=== PATIENT | female | born 1940 | race Caucasian/White ===

== ENCOUNTER 2022-11-09 14:11 | Observation (INO) | payer MEDICARE, SELFPAY ==
--- NOTE | ~2022-11-09 | CT_ITS ---
EXAMINATION: CT abdomen pelvis w con DATE: 11/09/2022 18:53 INDICATION: Low back pain. TECHNIQUE: Computed tomography (CT) of the abdomen and pelvis was performed with 100 L Omnipaque 350 intravenous contrast. Automated exposure control and iterative reconstruction technique were employed . The dose-length product was 659.77 mGy-cm. COMPARISON: None. FINDINGS: The visualized portions of the lung bases demonstrate mild atelectasis. Calcified pulmonary nodules are consistent with old granulomatous disease. There is mucous plugging in right middle lobe . There is a 7 mm nodule in the lingula. No pleural effusion. The heart size is normal. No pericardia l effusion. There is a moderate-sized sliding hiatal hernia. The liver is normal. There are changes o f cholecystectomy. The spleen, pancreas, adrenal glands are normal. There is a 12 mm cyst in right ki dney. Left kidney is normal. There is a 1.8 x 1.2 cm mass in left posterior aspect of the bladder. Th ere is diverticulosis of the colon without evidence of diverticulitis. There are no dilated loops of bowel. The appendix is normal. There is a 10 x 17 mm mesenteric lymph node. There is no free intraper itoneal fluid. There is moderate lumbar spondylosis. IMPRESSION: 1. 1.8 cm mass in the bladder suspicious for urothelial carcinoma. 2. 7 mm pulmonary nodule, probably benign. Noncontrast low-dose chest CT is recommended in 6 months. 3. Moderate-sized sliding hiatal hernia. 4. Mildly enlarged mesenteric lymph node, probably reactive. Reviewed, dictated and finalized at location E. IMPRESSION: 1. 1.8 cm mass in the bladder suspicious for urothelial carcinoma. 2. 7 mm pulmonary nodule, probably benign. Noncontrast low-dose chest CT is rec ommended in 6 months. 3. Moderate-sized sliding hiatal hernia. 4. Mildly enlarged mesenteric lymph node, probably reactive.
[2022-11-09 14:39] VITALS: BP 128/68; PULSE 96; RESP 16; TEMP 38.1; O2SAT 97
[2022-11-09 15:04] LABS: Hematocrit 46.1 % (37.0-47.0); Hemoglobin 15.8 g/dL (12.0-15.0); Mean Corpuscular HGB Conc 34.3 g/dl (32-36); Mean Corpuscular Volume 93.3 fl (80-100); Mean Platelet Volume 9.5 fl (7.4-10.4); Platelet Count Result 224 k/mm3 (150-375); Red Blood Count 4.94 M/mm3 (4.2-5.4); Red Cell Distribution Width 12.5 % (11.5-14.5)
[2022-11-09 15:10] LABS: Alanine Aminotransferase 42 U/L (6-35); Albumin Level 3.9 g/dL (3.5-5.1); Alkaline Phosphatase 97 U/L (38-126); Anion Gap 5 mmol/L (8-16); Aspartate Amino Transferase 58 U/L (14-36); Bilirubin,Total 0.8 mg/dL (0.2-1.3); Blood Urea Nitrogen 8 mg/dL (7-17); Calcium 8.4 mg/dL (8.4-10.2); Carbon Dioxide 27 mmol/L (22-30); Chloride 94 mmol/L (98-107); Estimated CRCL calculation 48 ml/min; Estimated Glomerular Filt Rate > 60; Glucose 171 mg/dL (65-110); Lipase 31 U/L (23-300); Potassium 2.9 mmol/L (3.4-5.0); Sodium 126 mmol/L (137-145)
[2022-11-09 15:19] LABS: Band Neutrophils Percent 13 % (0-6); Eosinophils Percent Manual 1 % (0-4); Monocytes Percent Manual 5 % (3-9); Neutrophils Percent Manual 76 % (46-73); Platelet Estimate Adequate (Adequate); Total Cells Counted 100
[2022-11-09 15:20] LABS: Schistocytes None Seen (NORMAL)
--- NOTE | 2022-11-09 16:49 | ED.FEMALEGU ---
HPI - Female Genitourinary General Chief complaint: Urogenital-Female Stated complaint: back pain, urinary retention Time Seen by Provider: 11/09/22 16:49 Source: patient and family Mode of arrival: ambulatory Limitations: no limitations History of Present Illness HPI Narrative: 81 years old white female came from home by private car with her complaining of steady lower back pain overnight, could not sleep. Woke up this morning with complete improvement. Patient was treated recently for urinary tract infection and currently on antibiotic. Patient reports intermittent lower back pain during daytime. Associated with chills, denies any nausea or vomiting or abdominal pain or chest pain. Related Data Allergies Allergy/AdvReac Type Severity Reaction Status Date / Time codeine Allergy Unknown Unknown Verified 11/09/22 17:44 niacin Allergy Unknown Unknown Verified 11/09/22 17:44 Sulfa (Sulfonamide Allergy Unknown Unknown Verified 11/09/22 17:44 Antibiotics) bee venom protein (honey bee) Allergy Unknown Verified 11/09/22 17:44 [bees] Review of Systems Review of Systems: All systems reviewed & are unremarkable except as noted in HPI and below PMFSH Family History Family History Grandparent Family history of thyroid disease Father Family history of Alzheimer's disease Mother Family history of Alzheimer's disease Family history of diabetes mellitus in first degree relative Social History Social History Second hand tobacco smoke exposure: No Smoking end date: 05/02/1966 Alcohol intake: current Exam Narrative: General appearance: Well-developed, well-nourished Skin: Normal color Head: Normocephalic, nontraumatic Eyes: Clear conjunctiva ENT: Oropharynx normal, ears normal, nose normal Neck: Supple, nontender Chest and respiratory: Airway patent, no respiratory distress, no accessory muscle use Heart: Regular rate/rhythm Abdomen: Soft, nontender, no organomegaly, quiet bowel sounds Vascular: Normal peripheral pulses, normal capillary refill. Musculoskeletal: Normal range of motion, nontender back Neurologic: Alert and oriented ?3, OBSERVATION ASSISTANT is normal as tested, no gross motor deficit Course Reevaluation(s) Reevaluation #1: No new changes compared to on arrival to the ED. Date: 11/09/22 Time: 17:41 Vital Signs Vital signs: Vital Signs Temperature 38.1 C H 11/09/22 14:39 Pulse Rate 96 11/09/22 14:39 Respiratory Rate 16 11/09/22 14:39 Blood Pressure 128/68 11/09/22 14:39 Pulse Oximetry 97 11/09/22 14:39 Oxygen Delivery Room Air 11/09/22 14:39 Temperature 37.7 C H 11/09/22 17:41 Pulse Rate 86 11/09/22 19:12 Respiratory Rate 23 H 11/09/22 19:12 Blood Pressure 102/80 11/09/22 19:12 Pulse Oximetry 100 11/09/22 19:12 Oxygen Delivery Room Air 11/09/22 14:39 MDM - Female Genitourinary Lab Data 11/09/22 14:52 11/09/22 14:52 Labs: Lab Results 11/09/22 11/09/22 Range/Units 14:52 17:26 WBC 10.0 (4.5-10.0) K/mm3 RBC 4.94 (4.2-5.4) M/mm3 Hgb 15.8 H (12.0-15.0) g/dL Hct 46.1 (37.0-47.0) % MCV 93.3 (80-100) fl MCH 32.0 (26-34) pg MCHC 34.3 (32-36) g/dl RDW 12.5 (11.5-14.5) % Plt Count 224 (150-375) k/mm3 MPV 9.5 (7.4-10.4) fl Immature Gran % (Auto) Not Reportable Neut % (Auto) Not Reportable Lymph % (Auto) Not Reportable [place] % (Auto) Not Reportable Eos % (Auto) Not Reportable Baso % (Auto) Not Reportable Lymph # (Auto) Not Reportable [place] # (Auto) Not Reportable
[2022-11-09 17:41] VITALS: BP 116/61; PULSE 86; RESP 30; TEMP 37.7; O2SAT 93
[2022-11-09] MEDS: SODIUM CHLORIDE 0.9% IV 1,000 ML 999 ML IV CONT (17:41)
[2022-11-09 18:09] LABS: Appearance Urine Clear (Clear); Bacteria Urine None Seen /hpf; Bilirubin Urine Negative (Negative); Blood Urine Negative (Negative); Color Urine Dark Yellow (Yellow); Glucose Urine UA 3+ mg/dL (Negative); Ketones Urine 3+ mg/dL (Negative); Leukocyte Esterase Ur Negative LEU/UL (Negative); Need Manual Microscopic Reviewed; Nitrate Urine Negative (Negative); Non Pathogenic Casts 0-2; Protein Urine 1+ mg/dL (Negative); RBC Urine 0-2 /hpf (0-2); Specific Grav Ur 1.023 (1.001-1.035); Squamous Epithelial Cell Urine None seen /hpf (Few); WBC Urine 0-5 /hpf
[2022-11-09 18:15] LABS: Add Urine Microscopic? YES
[2022-11-09 19:12] VITALS: BP 102/80; PULSE 86; RESP 23; O2SAT 100
[2022-11-09] MEDS: POTASSIUM CHLORIDE 20 MEQ PACKET (FOR LIQUID) 40 MEQ PO (19:18)
[2022-11-09] MEDS: POTASSIUM CHLORIDE INJ 40 MEQ in SODIUM CHLORIDE 0.9% IV 500 ML 130 MEQ IVPB (19:18)
[2022-11-09] MEDS: ACETAMINOPHEN 325 MG TABLET 650 MG PO (20:10)
[2022-11-09 20:12] VITALS: BP 108/67; PULSE 95; RESP 21; O2SAT 93
--- NOTE | 2022-11-09 20:30 | PM.IMHP ---
H&P: HPI History of Present Illness Date/Time: 11/09/22 20:30 Chief Complaint: weakness Narrative: This is an 81-year-old female with past medical history significant for type diabetes mellitus, hypothyroidism, GERD, depression, hypertension. Patient presents to the emergency room via private vehicle was brought by her she had been dealing with urinary tract infection for which she completed a course of antibiotics however patient expresses that she has been feeling very weak, run down, fatigue, tired, poor appetite. Patient was found to have several electrolyte derangements sodium 126, potassium 2.9, chloride [address] of abdomen and pelvis was reported as: EXAMINATION: CT abdomen pelvis w con DATE: 11/09/2022 18:53 INDICATION: Low back pain. TECHNIQUE: Computed tomography (CT) of the abdomen and pelvis was performed with 100 L Omnipaque 350 intravenous contrast. Automated exposure control and iterative reconstruction technique were employed. The dose-length product was 659.77 mGy-cm. COMPARISON: None. FINDINGS: The visualized portions of the lung bases demonstrate mild atelectasis. Calcified pulmonary nodules are consistent with old granulomatous disease. There is mucous plugging in right middle lobe. There is a 7 mm nodule in the lingula. No pleural effusion. The heart size is normal. No pericardial effusion. There is a moderate-sized sliding hiatal hernia. The liver is normal. There are changes of cholecystectomy. The spleen, pancreas, adrenal glands are normal. There is a 12 mm cyst in right kidney. Left kidney is normal. There is a 1.8 x 1.2 cm mass in left posterior aspect of the bladder. There is diverticulosis of the colon without evidence of diverticulitis. There are no dilated loops of bowel. The appendix is normal. There is a 10 x 17 mm mesenteric lymph node. There is no free intraperitoneal fluid. There is moderate lumbar spondylosis. IMPRESSION: 1. 1.8 cm mass in the bladder suspicious for urothelial carcinoma. 2. 7 mm pulmonary nodule, probably benign. Noncontrast low-dose chest CT is recommended in 6 months. 3. Moderate-sized sliding hiatal hernia. 4. Mildly enlarged mesenteric lymph node, probably reactive. patient has been admitted for further evaluation management and treatment. Review of Systems Review of Systems: Generalized weakness, diarrhea, nausea, vomiting recently completed a course of antibiotics for urinary tract infection Constitutional: Constitutional: Denies chills, Reports fatigue, Denies fever(s), Denies night sweats, Reports poor appetite and Reports weakness Eyes: Eyes: Denies change in vision ENT: Denies dysphagia and Denies odynophagia Cardiovascular: Cardiovascular: Denies chest pain, Denies syncope, Denies radiating jaw, neck or arm pain and Denies palpitations Respiratory: Respiratory: Denies chest congestion, Denies cough and Denies dyspnea Gastrointestinal: Gastrointestinal: Denies abdominal pain, Denies dyspepsia, Denies heartburn, Reports diarrhea, Reports nausea and Reports vomiting Genitourinary: Genitourinary: Denies dysuria and Denies flank pain Musculoskeletal: Musculoskeletal: Reports muscle weakness Integumentary/Breasts: Skin/Breast: Denies rash Neurologic: Denies focal weakness and Denies Sensory deficit (Neuro) Psychiatric: Psychiatric: Reports no additional psychiatric complaints and Reports as per HPI Endocrine: Endocrine: Denies cold intolerance, Denies flushing, Denies heat intolerance, Denies polyphagia, Denies polydipsia and Denies palpitations Hematologic/Lymphatic: Hematologic/Lymphatic: Reports no additional hematologic/lymphatic complaints and Reports as per HPI Allergic/Immunologic: Allergic/Immunologic: Reports no additional allergic/immunologic complaints and Reports as per HPI PMFSH Family History Family History Grandparent Family history of thyroid disease Father Family history
[2022-11-09 21:24] VITALS: BP 110/61; PULSE 92; RESP 18; TEMP 36.5; O2SAT 96
[2022-11-09 21:30] VITALS: BMI 32.2
--- NOTE | 2022-11-09 21:34 | ADMGEN ---
This patient, Maine Watkins, was admitted to Medical Room 252-01. Patient/family oriented to hospital policies and general routines including ID bracelet, bed and alarms, visiting hours, pain management, procedures, bathroom and other care routines, personal items, smoking policy, room service/diet, and visiting hours. Information on how to activate the Rapid Response Team has been discussed. Patient/Family are encouraged to report perceived risks to care and to ask questions if they do not understand what they are told or what they should do.
[2022-11-09 22:00] VITALS: BP 108/54; PULSE 65; RESP 18; TEMP 36.4; O2SAT 96
[2022-11-10] VITALS (11 sets, daily range): BP systolic 98–132; BP diastolic 53–77; PULSE 60–100; RESP 16–22; TEMP 35.9–36.8; O2SAT 96–98
[2022-11-10] MEDS: SODIUM CHLORIDE 0.9% IV 1,000 ML 60 ML IV CONT (00:11)
[2022-11-10 01:26] LABS: Anion Gap 2 mmol/L (8-16); Blood Urea Nitrogen 10 mg/dL (7-17); Calcium 7.7 mg/dL (8.4-10.2); Carbon Dioxide 25 mmol/L (22-30); Chloride 105 mmol/L (98-107); Estimated CRCL calculation 54 ml/min; Estimated Glomerular Filt Rate > 60; Glucose 173 mg/dL (65-110); Magnesium 1.7 mg/dL (1.6-2.3); Phosphorus 3.3 mg/dL (2.5-4.5); Potassium 3.6 mmol/L (3.4-5.0); Sodium 132 mmol/L (137-145)
[2022-11-10] MEDS: LEVOTHYROXINE SODIUM 88 MCG TABLET PO (05:29)
[2022-11-10 05:53] LABS: Anion Gap -1 mmol/L (8-16); Blood Urea Nitrogen 11 mg/dL (7-17); Calcium 7.7 mg/dL (8.4-10.2); Carbon Dioxide 29 mmol/L (22-30); Chloride 106 mmol/L (98-107); Estimated CRCL calculation 54 ml/min; Estimated Glomerular Filt Rate > 60; Glucose 128 mg/dL (65-110); Potassium 3.6 mmol/L (3.4-5.0); Sodium 134 mmol/L (137-145)
--- NOTE | 2022-11-10 07:38 | PM.IMPN ---
Progress Note: A&P Assessment and Plan (1) Hyponatremia: Code(s): E87.1 - Hypo-osmolality and hyponatremia Status: Acute Assessment and Plan: likely secondary to GI losses patient has received at least 2 L of NS continue effusion with normal saline 0.9% encourage per orally intake serial BMP Replace K as needed (2) Hypokalemia: Code(s): E87.6 - Hypokalemia Status: Acute Assessment and Plan: likely secondary to GI losses replace as needed continue to monitor Stable at 3.6 today (3) Mass of urinary bladder: Code(s): N32.89 - Other specified disorders of bladder Status: Acute Assessment and Plan: consult with Urology for further evaluation -consult order placed this morning. Appreciate recommendations from urology. (4) Weakness: Code(s): R53.1 - Weakness Status: Acute Assessment and Plan: -likely secondary to resolving acute illness. Recent urinary tract infection but U/A is negative this admission. -PT OT consult (5) Nausea vomiting and diarrhea: Code(s): R11.2 - Nausea with vomiting, unspecified; R19.7 - Diarrhea, unspecified Status: Acute Assessment and Plan: improved CT abdomen and pelvis reviewed clear liquids okay and will advanced to regular diet at lunch as tolerated. supportive care continue to monitor Subjective Date/time seen: 11/10/22 07:38 Interval history: HPI obtained from chart review Narrative: ?This is an 81-year-old female with past medical history significant for type diabetes mellitus, hypothyroidism, GERD, depression, hypertension.? Patient presents to the emergency room via private vehicle was brought by her she had been dealing with urinary tract infection for which she completed a course of antibiotics however patient expresses that she has been feeling very weak, run down, fatigue, tired, poor appetite.? Interval history: 11/10: Patient is seen today resting in bed. She appears comfortable and in no acute distress. She says that after her IV fluids electrolyte replacements she is feeling much better today. While talking with her she mention that her PCP had recently started her on medication last week on 11/05. She cannot recall the name but says that it is similar to Ozempic and she had a bad reaction causing severe diarrhea. At the same time she was having some dysuria so she notified her provider who started her on antibiotics for UTI. Since then she was not felt herself. It is likely that the dehydration and severe electrolyte derangement was related to this medication side effect. She reports that over the weekend she had poor intake and her appetite was lacking. She feels like her appetite is coming back today she tried eating breakfast and lunch but it was difficult because she does not have her dentures. Her is bringing those in this afternoon so I would like to see how she does with her evening meal. If she continues to tolerate p.o. intake well then she will discharge tomorrow. Review of Systems Review of Systems: All systems reviewed & are unremarkable except as noted in HPI and below Exam Narrative: General: well-nourished, well-appearing 81-year-old female, sitting up in bed, comfortable, NARD Neuro: awake, alert and oriented x4, speech clear, no focal neuro deficits noted HEENMT: normocephalic, atraumatic, EOMI, sclerae anicteric, moist oral mucosa Respiratory: Clear to auscultation bilaterally without crackles, rhonchi or wheezes, nonlabored breathing Cardio: regular rate, regular rhythm with S1-S2 Abdomen: nondistended, normoactive bowel sounds, soft, nontender to palpation Extremities: no edema, erythema, or tenderness to palpation, DP pulses 2+ bilaterally Skin: no rashes or lesions, warm and dry Psych: appropriate mood and affect, judgment and insight intact Objective Data Vital Signs Vital Signs: Vital Signs - 24 hr 11/09/22
[2022-11-10 07:47] LABS: Basophils Percent Auto 0.5 % (0.2-1.2); Eosinophils Absolute Auto 0.3 K/mm3 (0-0.3); Eosinophils Percent Auto 5.4 % (0-4.4); Hemoglobin 13.4 g/dL (12.0-15.0); Immature Granulocyte Absolute 0.03 K/mm3 (0.00-0.031); Immature Granulocyte Percent A 0.5 % (0-0.5); Lymphocytes Absolute Auto 1.07 K/mm3 (0.9-3.2); Mean Corpuscular HGB Conc 33.5 g/dl (32-36); Mean Corpuscular Hemoglobin 32.1 pg (26-34); Mean Corpuscular Volume 95.9 fl (80-100); Mean Platelet Volume 9.9 fl (7.4-10.4); Monocytes Absolute Auto 0.5 K/mm3 (0.1-0.6); Monocytes Percent Auto 8.2 % (2.6-8.5); Neutrophils Percent Auto 67.4 % (45.5-73.1); Platelet Count Result 210 k/mm3 (150-375); Red Blood Count 4.17 M/mm3 (4.2-5.4)
[2022-11-10] MEDS: FLUoxetine HCL 20 MG CAPSULE 40 MG PO (08:00)
[2022-11-10] MEDS: POTASSIUM CHLORIDE 20 MEQ ER TABLET 40 MEQ PO ×2 (08:00→17:03)
[2022-11-10] MEDS: ASPIRIN 81 MG CHEWABLE TABLET PO (08:00)
[2022-11-10] MEDS: amLODIPine BESYLATE 5 MG TABLET PO (08:00)
[2022-11-10] MEDS: PANTOPRAZOLE 40 MG TABLET PO (08:00)
[2022-11-10] MEDS: PRAMIPEXOLE 0.125 MG TABLET PO (08:01)
[2022-11-10 08:04] LABS: Alanine Aminotransferase 33 U/L (6-35); Albumin Level 2.9 g/dL (3.5-5.1); Alkaline Phosphatase 89 U/L (38-126); Aspartate Amino Transferase 37 U/L (14-36); Bilirubin,Total 0.5 mg/dL (0.2-1.3)
[2022-11-10 08:22] LABS: Platelet Estimate Adequate (Adequate)
[2022-11-10 08:23] LABS: Atypical Lymphocytes Present; Burr Cells 1+ (NORMAL); Schistocytes None Seen (NORMAL)
--- NOTE | 2022-11-10 14:46 | PCCCNOTE ---
On 11/10/22, the student, [Noreen Mandel], provided care and completed [facility] documentation on this patient. I have reviewed the student's documentation and agree with the findings.
--- NOTE | 2022-11-10 16:08 | WPDURCON ---
Assessment and Plan Assessment and plan (1) Mass of urinary bladder: Code(s): N32.89 - Other specified disorders of bladder Status: Acute Assessment and Plan: Patient to f/u outpatient for a cystoscopy to further evaluate her bladder mass. No further evaluation at this time. Urology Consult Note HPI Date Seen: 11/10/22 Time Seen: 09:00 Requesting Physician: Alpa Rader MD Primary Care Provider: Tin Horne, Consult Narrative Reason for consult: Bladder Mass Narrative: Maine Watkins is a 81 year old female who presented to the ER yesterday for lower back pain and chills. She was treated for a UTI recently, but states her symptoms have improved. WBC 6.0, creatinine is 0.70, UA is negative. CT scan was found to have a 1.8cmx1.2cm mass in her bladder suspicious for urothelial carcinoma. She has no history of bladder cancer, and she denies incontinence, frequency, urgency or nocturia. She also denies hematuria or dysuria. She is afebrile. Review of Systems Cardiovascular: Cardiovascular: Denies chest pain Respiratory: Respiratory: Reports no additional respiratory complaints Gastrointestinal: Gastrointestinal: Denies abdominal pain, Denies nausea and Denies vomiting Genitourinary: Genitourinary: Denies hematuria, Denies dysuria, Denies flank pain, Denies urinary incontinence, Denies urinary hesitancy and Denies urinary urgency [facility] Family History Family History Grandparent Family history of thyroid disease Father Family history of Alzheimer's disease Mother Family history of Alzheimer's disease Family history of diabetes mellitus in first degree relative Social History Social History Smoking status: Never smoker Second hand tobacco smoke exposure: No Smoking end date: 05/02/1966 Alcohol intake: never Substance use: never Lack of Transportation: No Lack of Food: Never True Current Housing: I Have Housing Concerned About Future Housing: No Difficulty Paying Gas/Electric Bills: No Difficulty Paying for Meds: No Currently Unemployed: No Education: High School Diploma/GED Difficulty w/ Childcare or Family Care: No Spiritual care concerns: No Meds Home Medications and Allergies Home Medications Medication Instructions Recorded Confirmed Type amitriptyline 25 mg tablet 25 mg PO QHS 11/09/22 11/09/22 History amlodipine 5 mg tablet 5 mg PO QAM 11/09/22 11/09/22 History aspirin 81 mg chewable tablet 81 mg PO QAM 11/09/22 11/09/22 History fluoxetine 40 mg capsule 40 mg PO QAM 11/09/22 11/09/22 History furosemide 20 mg tablet 20 mg PO QAM 11/09/22 11/09/22 History glipizide 5 mg tablet, extended 5 mg PO BID 11/09/22 11/09/22 History release 24 hr levothyroxine 88 mcg tablet 88 mcg PO QAM 11/09/22 11/09/22 History (Synthroid) omeprazole 20 mg capsule,delayed 20 mg PO QAM 11/09/22 11/09/22 History release pramipexole 0.125 mg tablet 0.125 mg PO QAM 11/09/22 11/09/22 History sodium,potassium,mag sulfates 17.5 177 ml PO BID 11/09/22 11/09/22 History gram-3.13 gram-1.6 gram oral soln Allergies Allergy/AdvReac Type Severity Reaction Status Date / Time bee venom protein (honey bee) Allergy Severe Anaphylaxis Verified 11/09/22 21:26 [bees] codeine Allergy Unknown Unknown Verified 11/09/22 17:44 niacin Allergy Unknown Unknown Verified 11/09/22 17:44 Sulfa (Sulfonamide Allergy Unknown Unknown Verified 11/09/22 17:44 Antibiotics) Vital Signs Vital Signs - 24 hr 11/09/22 17:41 11/09/22 19:12 11/09/22 20:12 Temperature 99.8 F H Pulse Rate 86 86 95 Respiratory Rate 30 H 23 H 21 H Blood Pressure 116/61 102/80 108/67 Pulse Oximetry 93 100 93 Oxygen Delivery Fraction of Inspired Oxygen 11/09/22 21:24 11/09/22 22:40 11/10/22 00:04 Temperature 97.7 F Pulse Rate 92 92 Respiratory Rate 18
--- NOTE | 2022-11-10 16:10 | PCPTNOTE ---
On 11/10/22, the student, GUY Romero, provided care and completed [facility] documentation on this patient. I have reviewed the student's documentation and agree with the findings.
[2022-11-10] MEDS: AMITRIPTYLINE HCL 25 MG TABLET PO (20:27)
[2022-11-10 20:56] LABS: Glucose Point of Care 205 mg/dl (65-105)
[2022-11-11] VITALS: PULSE 74
[2022-11-11 03:19] VITALS: BP 129/62; PULSE 79; RESP 18; TEMP 36.1; O2SAT 98
[2022-11-11 04:00] VITALS: PULSE 95
[2022-11-11 05:40] LABS: Basophils Percent Auto 0.4 % (0.2-1.2); Eosinophils Absolute Auto 0.5 K/mm3 (0-0.3); Eosinophils Percent Auto 5.9 % (0-4.4); Hemoglobin 12.9 g/dL (12.0-15.0); Immature Granulocyte Absolute 0.03 K/mm3 (0.00-0.031); Immature Granulocyte Percent A 0.4 % (0-0.5); Lymphocytes Absolute Auto 1.68 K/mm3 (0.9-3.2); Lymphocytes Percent Auto 21.2 % (18.3-44.2); Mean Corpuscular HGB Conc 33.9 g/dl (32-36); Mean Corpuscular Hemoglobin 32.2 pg (26-34); Mean Corpuscular Volume 94.8 fl (80-100); Mean Platelet Volume 9.3 fl (7.4-10.4); Monocytes Absolute Auto 0.5 K/mm3 (0.1-0.6); Monocytes Percent Auto 5.8 % (2.6-8.5); Neutrophils Absolute Auto 5.2 K/mm3 (1.3-6.7); Neutrophils Percent Auto 66.3 % (45.5-73.1); Platelet Count Result 215 k/mm3 (150-375); Red Blood Count 4.01 M/mm3 (4.2-5.4); Red Cell Distribution Width 12.7 % (11.5-14.5); White Blood Count 7.9 K/mm3 (4.5-10.0)
[2022-11-11 05:48] LABS: Alanine Aminotransferase 27 U/L (6-35); Albumin Level 2.9 g/dL (3.5-5.1); Alkaline Phosphatase 90 U/L (38-126); Anion Gap 4 mmol/L (8-16); Aspartate Amino Transferase 25 U/L (14-36); Bilirubin,Total 0.4 mg/dL (0.2-1.3); Blood Urea Nitrogen 10 mg/dL (7-17); Carbon Dioxide 25 mmol/L (22-30); Chloride 105 mmol/L (98-107); Estimated CRCL calculation 62 ml/min; Estimated Glomerular Filt Rate > 60; Glucose 137 mg/dL (65-110); Magnesium 1.6 mg/dL (1.6-2.3); Potassium 3.9 mmol/L (3.4-5.0); Sodium 134 mmol/L (137-145)
[2022-11-11] MEDS: LEVOTHYROXINE SODIUM 88 MCG TABLET PO (06:03)
--- NOTE | 2022-11-11 07:01 | PM.DS ---
DS: Admitting Diagnosis Discharge Date November 11 Admitting Diagnosis hypokalemia DS: Discharge Diagnosis Discharge Diagnosis Plan Assessment and Plan (1) Hyponatremia: ?Code(s): E87.1 - Hypo-osmolality and hyponatremia ?Status:?Acute ?Assessment and Plan: ?likely secondary to GI losses ?patient has received at least 2 L of NS ?continue effusion with normal saline 0.9% ?encourage per orally intake ?serial BMP Replace K as needed (2) Hypokalemia: ?Code(s): E87.6 - Hypokalemia ?Status:?Acute ?Assessment and Plan: ?likely secondary to GI losses ?replace as needed ?continue to monitor Stable at 3.6 today (3) Mass of urinary bladder: ?Code(s): N32.89 - Other specified disorders of bladder ?Status:?Acute ?Assessment and Plan: ?consult with Urology for further evaluation -consult order placed this morning. Appreciate recommendations from urology. (4) Weakness: ?Code(s): R53.1 - Weakness ?Status:?Acute ?Assessment and Plan: ?-likely secondary to resolving acute illness. Recent urinary tract infection but U/A is negative this admission. ?-PT OT consult (5) Nausea vomiting and diarrhea: ?Code(s): R11.2 - Nausea with vomiting, unspecified; R19.7 - Diarrhea, unspecified ?Status:?Acute ?Assessment and Plan: ?improved ?CT abdomen and pelvis reviewed ?clear liquids okay and will advanced to regular diet at lunch as tolerated. ?supportive care ?continue to monitor DS: Summary Hospital Course Reason for hospitalization: hypokalemia, dehydration Hospital Course: Narrative: ?This is an 81-year-old female with past medical history significant for type diabetes mellitus, hypothyroidism, GERD, depression, hypertension.? Patient presents to the emergency room via private vehicle was brought by her she had been dealing with urinary tract infection for which she completed a course of antibiotics however patient expresses that she has been feeling very weak, run down, fatigue, tired, poor appetite.? Interval history: 11/10:? Patient is seen today resting in bed.? She appears comfortable and in no acute distress.? She says that after her IV fluids electrolyte replacements she is feeling much better today.? While talking with her she mention that her PCP had recently started her on medication last week on 11/05.? She cannot recall the name but says that it is similar to Ozempic and she had a bad reaction causing severe diarrhea.? At the same time she was having some dysuria so she notified her provider who started her on antibiotics for UTI.? Since then she was not felt herself.? It is likely that the dehydration and severe electrolyte derangement was related to this medication side effect.? She reports that over the weekend she had poor intake and her appetite was lacking.? She feels like her appetite is coming back today she tried eating breakfast and lunch but it was difficult because she does not have her dentures.? Her is bringing those in this afternoon so I would like to see how she does with her evening meal.? If she continues to tolerate p.o. intake well then she will discharge tomorrow. 11/11: Patient is seen this morning resting in bed after finishing her breakfast. She states that she feels almost 100% better and is ready to discharge home today. She was able to tolerate dinner last night and breakfast this morning after getting her dentures from home. She denies fatigue, muscle weakness, dizziness, headache, chest pain, shortness of breath, nausea, vomiting, diarrhea, and pain. Her is coming between 11 30 and noon and he will be her right home. I spoke with her about continuing a 5 day course of potassium 40 mEq daily. She will then need to follow-up with her PCP next week. I also notified her that she will be receiving a phone call from the urology office for follow-up within 1 week to investigate as suspicious bladder mass. Patient jovan
[2022-11-11] MEDS: SODIUM CHLORIDE 0.9% IV 1,000 ML 60 ML IV CONT (07:29)
[2022-11-11 08:00] VITALS: PULSE 75
[2022-11-11] MEDS: PANTOPRAZOLE 40 MG TABLET PO (08:46)
[2022-11-11] MEDS: FLUoxetine HCL 20 MG CAPSULE 40 MG PO (08:46)
[2022-11-11] MEDS: ASPIRIN 81 MG CHEWABLE TABLET PO (08:46)
[2022-11-11] MEDS: PRAMIPEXOLE 0.125 MG TABLET PO (08:46)
[2022-11-11] MEDS: MAGNESIUM OXIDE 400 MG TABLET PO (08:47)
[2022-11-11] MEDS: POTASSIUM CHLORIDE 20 MEQ ER TABLET 40 MEQ PO (08:47)
[2022-11-11] MEDS: amLODIPine BESYLATE 5 MG TABLET PO (08:47)
[2022-11-11 09:01] VITALS: O2SAT 95
[2022-11-11 13:49] VITALS: BP 110/66; PULSE 69; RESP 16; TEMP 37.1; O2SAT 97
== END 2022-11-11 14:20 | disposition home or self-care (01) ==
LOC: ANHED 19:35 → ANH2MED 21:01
PROVIDERS: Nurse Practitioner Acute Care; Preventive Medicine Aerospace Medicine; Admitting Provider Internal Medicine; Emergency Provider Emergency Medicine; PCP Emergency Medicine; Visit Provider Student in an Organized Health Care Education/Training Program
DX: E87.1 Hypo-osmolality and hyponatremia (principal); E87.6 Hypokalemia; N32.9 Bladder disorder, unspecified; R53.1 Weakness; R11.2 Nausea with vomiting, unspecified; R19.7 Diarrhea, unspecified; M54.50 Low back pain, unspecified; R68.83 Chills (without fever); R91.1 Solitary pulmonary nodule; E03.9 Hypothyroidism, unspecified; E11.9 Type 2 diabetes mellitus without complications; I10 Essential (primary) hypertension; R63.0 Anorexia; Z68.32 Body mass index [BMI] 32.0-32.9, adult; K21.9 Gastro-esophageal reflux disease without esophagitis; F32.A Depression, unspecified; K44.9 Diaphragmatic hernia without obstruction or gangrene; R59.9 Enlarged lymph nodes, unspecified; F10.90 Alcohol use, unspecified, uncomplicated; Z87.440 Personal history of urinary (tract) infections; Z79.82 Long term (current) use of aspirin; Z79.84 Long term (current) use of oral hypoglycemic drugs; Z79.899 Other long term (current) drug therapy
CPT/HCPCS: 36415; 74177; 80048; 80053; 80076; 81001; 82948; 83605; 83690; 83735; 84100; 85025; 96361; 96374; 97161; 97165; 99285; A9270; G0378; J3480; J7030; J7040; Q9967

== ENCOUNTER 2022-12-15 09:52 | Outpatient (CLI) | payer MEDICARE, SELFPAY ==
--- NOTE | 2022-12-15 10:04 | ECG_ITS ---
Measurements Intervals [place] Rate: 83 P: -43 UT: 164 QRS: -40 QRSD: 86 T: -4 QT: 382 QTc: 449 Interpretive Statements LIKLEY SINUS RHYTHM LOW QRS VOLTAGE IN PRECORDIAL LEADS [QRS DEFLECTION < 1.0 mV IN CHEST LEADS] NONSPECIFIC T-WAVE ABNORMALITY BASELINE ARTIFACT LIMITS INTREPRETATION NO PREVIOUS ECG AVAILABLE FOR COMPARISON Electronically Signed On 12-15-2022 15:23:30 CDT by Juanita Menendez M.D.
[2022-12-15 11:24] LABS: INR 0.9; Prothrombin Time 12.9 Seconds (11.1-14.7)
[2022-12-15 11:25] LABS: Partial Thromboplastin Time 29.8 SECONDS (22.3-36.8)
== END 2022-12-15 09:53 | disposition home or self-care (01) ==
LOC: ANHSURGERY 09:58
PROVIDERS: PCP Emergency Medicine; Visit Provider Urology
DX: Z01.812 Encounter for preprocedural laboratory examination (principal); Z01.810 Encounter for preprocedural cardiovascular examination; N32.89 Other specified disorders of bladder; I10 Essential (primary) hypertension; R94.31 Abnormal electrocardiogram [ECG] [EKG]
CPT/HCPCS: 36415; 85610; 85730; 87077; 87086; 87186; 93005

== ENCOUNTER 2022-12-21 06:51 | Emergency (ER) | payer MEDICARE, SELFPAY ==
--- NOTE | ~2022-12-21 | CT_ITS ---
EXAMINATION: CT cervical spine wo con DATE: 12/21/2022 08:49 INDICATION: Head injury. TECHNIQUE: Computed tomography (CT) of the cervical spine was performed without intravenous contrast. Automated exposure control and iterative reconstruction technique were employed. The dose-length pro duct was 404.51 mGy-cm. COMPARISON: None FINDINGS: There is kyphosis of cervical spine. Vertebral body heights are normal. There is mildly dec reased disc height at C4-C5, severely decreased disc height at C5-C6, and moderately decreased disc h eight at C6-C7. The following disc levels are specifically discussed: C2-C3: There is mild bilateral uncovertebral joint osteoarthritis. There is ankylosis of the facet fernie ints with mild hypertrophy. There is no neural foraminal stenosis. There is no central canal stenosis . C3-C4: There is no uncovertebral joint osteoarthritis. There is ankylosis of right facet joint with m oderate hypertrophy. There is moderate left facet joint osteoarthritis. There is mild right neural fo raminal stenosis. There is no central canal stenosis. C4-C5: There is severe right and mild left uncovertebral joint osteoarthritis. There is mild right an d severe left facet joint osteoarthritis. There is mild bilateral neural foraminal stenosis. There is mild central canal stenosis. C5-C6: There is severe bilateral uncovertebral joint osteoarthritis. There is mild bilateral facet fernie int osteoarthritis. There is mild bilateral neural foraminal stenosis. There is mild central canal st enosis. C6-C7: There is moderate right and severe left uncovertebral joint osteoarthritis. There is severe bi lateral facet joint osteoarthritis. There is mild bilateral neural foraminal stenosis. There is mild central canal stenosis. C7-T1: There is no uncovertebral joint osteoarthritis. There is severe bilateral facet joint osteoart hritis. There is mild bilateral neural foraminal stenosis. There is no central canal stenosis. IMPRESSION: 1. No fracture. 2. Severe cervical spondylosis. Reviewed, dictated and finalized at location A.
--- NOTE | ~2022-12-21 | CT_ITS ---
EXAMINATION: CT brain wo con DATE: 12/21/2022 08:48 INDICATION: Head injury. TECHNIQUE: Computed tomography (CT) of the head was performed without intravenous contrast. The mA wa s adjusted according to patient size. Iterative reconstruction technique was employed. The dose-lengt h product was 681.00 mGy-cm. COMPARISON: None FINDINGS: There are scattered areas of low attenuation in the cerebral white matter. There is no intr acranial hemorrhage, acute infarction, or abnormal intracranial mass lesion. The ventricles are laura l in size. There is mild mucosal thickening in the ethmoid sinuses. The mastoid air cells are normal. The orbits are normal. There is frontal scalp soft tissue swelling. IMPRESSION: 1. Mild nonspecific cerebral white matter disease, which likely represents chronic small vessel ische talon disease. Reviewed, dictated and finalized at location A. IMPRESSION: 1. Mild nonspecific cerebral white matter disease, which likely represents blocklayer travis small vessel ischemic disease.
[2022-12-21 07:06] VITALS: BP 130/94; PULSE 68; RESP 18; TEMP 36.6; O2SAT 98
[2022-12-21 09:08] VITALS: BP 146/72; PULSE 72; RESP 20; O2SAT 100
--- NOTE | 2022-12-21 09:12 | ED.FALL ---
HPI - Fall General Chief Complaint: Fall Stated Complaint: fall/ hit head Time Seen by Provider: 12/21/22 09:01 History of Present Illness HPI Narrative: 82-year-old female with history of diabetes and hypertension reports for evaluation after a mechanical fall that occurred prior to arrival. Patient was in preop at the hospital earlier this morning preparing for surgery with Dr. Jones. She reports a history of a left foot drop and states she was rounding the corner, her foot dropped and caused her to fall. Patient states she landed on her forehead, she did not lose consciousness. She denies any injury or pain currently. She denies chest pain or shortness of breath, vision changes, focal numbness or weakness, difficulty speaking, any pain to her extremities or back, neck pain, dizziness or lightheadedness. Related Data Home Medications Medication Instructions Recorded Confirmed amitriptyline 25 mg tablet 12.5 mg PO QHS 11/09/22 12/13/22 amlodipine 5 mg tablet 5 mg PO QAM 11/09/22 12/13/22 aspirin 81 mg chewable tablet 81 mg PO QAM 11/09/22 12/13/22 fluoxetine 40 mg capsule 40 mg PO QAM 11/09/22 12/13/22 furosemide 20 mg tablet 20 mg PO QAM 11/09/22 12/13/22 levothyroxine 88 mcg tablet 88 mcg PO QA 11/09/22 12/13/22 (Synthroid) omeprazole 20 mg capsule,delayed 20 mg PO HS 11/09/22 12/13/22 release pramipexole 0.125 mg tablet 0.125 mg PO HS 11/09/22 12/13/22 cyanocobalamin (vitamin B-12) 1,000 mcg PO DAILY 12/13/22 12/13/22 1,000 mcg capsule xaqlrjjm-[id number] 5 mg-zeaxanth 1 cap PO QAM 12/13/22 12/13/22 1 mg-bilberry 7.5 mg-herbal capsule ([employer] Formula) semaglutide 1 mg/dose (4 mg/3 mL) 1.34 mg subcut WEEKLY 12/13/22 12/13/22 subcutaneous pen injector (Ozempic) Allergies Allergy/AdvReac Type Severity Reaction Status Date / Time bee venom protein (honey bee) Allergy Severe Anaphylaxis Verified 12/21/22 07:22 [bees] codeine Allergy Unknown Hives Verified 12/21/22 07:22 niacin Allergy Unknown Hives Verified 12/21/22 07:22 Sulfa (Sulfonamide Allergy Unknown Unknown- Verified 12/21/22 07:22 Antibiotics) A CHILD empagliflozin AdvReac Diarrhea Verified 12/21/22 07:22 [From Jardiance] Review of Systems Review of Systems: CONSTITUTIONAL: Denies fever, chills EYES: Denies visual changes, redness, or discharge. ENT: Denies rhinorrhea, congestion, sore throat, or otalgia. CARDIOVASCULAR: Denies chest pain, palpitations, or edema. RESPIRATORY: Denies cough or dyspnea. GASTROINTESTINAL: Denies abdominal pain, nausea, vomiting, or diarrhea. GENITOURINARY: Denies dysuria or hematuria. SKIN: Denies rash or itching. MUSCULOSKELETAL: Denies back pain, joint pain, or myalgia. NEUROLOGIC: Denies headache, numbness, dizziness, or weakness. PSYCHIATRIC: Denies anxiety or depression. [facility] Family History Family History Grandparent Family history of thyroid disease Father Family history of Alzheimer's disease Mother Family history of Alzheimer's disease Family history of diabetes mellitus in first degree relative Social History Social History Smoking status: Former smoker Tobacco type: cigarettes Second hand tobacco smoke exposure: No Smoking end date: 05/02/66 Additional smoking assessment comments: PT UNABLE TO RECALL SMOKING HX Alcohol intake: never Substance use: never Substance use type: does not use Lack of Transportation: No Lack of Food: Never True Current Housing: I Have Housing Concerned About Future Housing: No Difficulty Paying Gas/Electric Bills: No Difficulty Paying for Meds: No Currently Unemployed: No Education: High School Diploma/GED Difficulty w/ Childcare or Family Care: No Living arrangements: with family Spiritual care concerns: No Exam Narrative: GENERAL: Well-appearing, in no acute distress. Kacyen
[2022-12-21 09:38] VITALS: BP 132/76; PULSE 66; RESP 20; O2SAT 96
== END 2022-12-21 09:59 | disposition home or self-care (01) ==
LOC: ANHED 09:21
PROVIDERS: Emergency Provider Physician Assistant; PCP Emergency Medicine
DX: S09.90XA Unspecified injury of head, initial encounter (principal); E11.9 Type 2 diabetes mellitus without complications; I10 Essential (primary) hypertension; M21.372 Foot drop, left foot; Z87.891 Personal history of nicotine dependence; Z79.82 Long term (current) use of aspirin; Z79.85 Long-term (current) use of injectable non-insulin antidiabetic drugs; R90.82 White matter disease, unspecified; M47.812 Spondylosis without myelopathy or radiculopathy, cervical region; W18.39XA Other fall on same level, initial encounter
CPT/HCPCS: 70450; 72125; 99284

== ENCOUNTER 2022-12-21 10:06 | Day surgery (SDC) | payer MEDICARE, SELFPAY ==
[2022-12-21] VITALS (8 sets, daily range): BP systolic 86–153; BP diastolic 53–73; PULSE 57–72; RESP 9–18; TEMP 36.2–36.8; O2SAT 95–100
[2022-12-21 10:35] LABS: Glucose Point of Care 248 mg/dl (65-105)
--- NOTE | 2022-12-21 10:41 | WPDHPUPDATE1 ---
History and Physical Update Update Date/Time: 12/21/22 10:41 History and Physical has been reviewed, including an updated exam of the patient. There are NO changes in the patient's condition. Risks, benefits, and alternatives have been discussed and questions answered. Patient agrees to proceed with procedure. Proceed with TURBT
--- NOTE | 2022-12-21 10:43 | WPDANESEPPF ---
Anes - Initial Pre Proc Eval Procedure: Operation Date: 12/21/22 09:00 Proposed Procedures p Trans Urethral Resection Bladder Tumor - Rajendra Jones MD Date/Time: 12/21/22 10:43 Surgeon: Rajendra Jones MD Pre Op Diagnosis: bladder mass Patient Data Age: 82 Gender: F Height: Weight: Allergies Allergy/AdvReac Type Severity Reaction Status Date / Time bee venom protein (honey bee) Allergy Severe Anaphylaxis Verified 12/21/22 07:22 [bees] codeine Allergy Unknown Hives Verified 12/21/22 07:22 niacin Allergy Unknown Hives Verified 12/21/22 07:22 Sulfa (Sulfonamide Allergy Unknown Unknown- Verified 12/21/22 07:22 Antibiotics) A CHILD empagliflozin AdvReac Diarrhea Verified 12/21/22 07:22 [From Jardiance] Home Medications Medication Instructions Recorded Confirmed Type amitriptyline 25 mg tablet 12.5 mg PO QHS 11/09/22 12/13/22 History amlodipine 5 mg tablet 5 mg PO QAM 11/09/22 12/13/22 History aspirin 81 mg chewable tablet 81 mg PO QAM 11/09/22 12/13/22 History fluoxetine 40 mg capsule 40 mg PO QAM 11/09/22 12/13/22 History furosemide 20 mg tablet 20 mg PO QAM 11/09/22 12/13/22 History levothyroxine 88 mcg tablet 88 mcg PO QAM 11/09/22 12/13/22 History (Synthroid) omeprazole 20 mg capsule,delayed 20 mg PO HS 11/09/22 12/13/22 History release pramipexole 0.125 mg tablet 0.125 mg PO 11/09/22 12/13/22 History cyanocobalamin (vitamin B-12) 1,000 mcg PO DAILY 12/13/22 12/13/22 History 1,000 mcg capsule atqhuuvy-nyv-olvthi 5 mg-zeaxanth 1 cap PO QAM 12/13/22 12/13/22 History 1 mg-bilberry 7.5 mg-herbal capsule ([employer] [facility] Formula) semaglutide 1 mg/dose (4 mg/3 mL) 1.34 mg subcut WEEKLY 12/13/22 12/13/22 History subcutaneous pen injector (Ozempic) Laboratory Tests 12/21/22 10:29 POC Capillary Glucose 248 H mg/dl (65-105) Patient hx anesthesia problems: none Family hx anesthesia problems: none Results Review: All pre-operative results and documents have been reviewed as part of the pre-operative evaluation. [facility] Family History Family History Grandparent Family history of thyroid disease Father Family history of Alzheimer's disease Mother Family history of Alzheimer's disease Family history of diabetes mellitus in first degree relative Social History Social History Smoking status: Former smoker Tobacco type: cigarettes Second hand tobacco smoke exposure: No Smoking end date: 05/02/66 Additional smoking assessment comments: PT UNABLE TO RECALL SMOKING HX Alcohol intake: never Substance use: never Substance use type: does not use Lack of Transportation: No Lack of Food: Never True Current Housing: I Have Housing Concerned About Future Housing: No Difficulty Paying Gas/Electric Bills: No Difficulty Paying for Meds: No Currently Unemployed: No Education: High School Diploma/GED Difficulty w/ Childcare or Family Care: No Living arrangements: with family Spiritual care concerns: No Anes - Eval Final PreProcedure Day of Procedure 12/21/22 10:43 Patient weight: overweight Heart: regular rate and rhythm Lungs: clear to auscultation Airway: Mallampati scale class II Last oral intake: >/= 8 hours ASA classification: III Emergent: no Anesthetic plan: proceed Anesthesia type and monitoring: general LMA and standard monitoring Results Review: All pre-operative results and documents have been reviewed as part of the pre-operative evaluation. Informed Consent: The patient's anesthetic plan and its attendant risks and benefits were discussed with the patient/family/POA. Questions were solicited and answers provided to the satisfaction of the patient/family/POA.
[2022-12-21] MEDS: ceFAZolin 2 GM/D5W 50 ML 2 GM/50 ML BAG IVPB (11:13)
[2022-12-21] MEDS: LIDOCAINE HCL 2% GEL UROJET 10 ML PKG MUCOUS MEM (11:28)
--- NOTE | 2022-12-21 11:42 | W.PM.PROC2 ---
Procedure Note - Detailed Date of Procedure 12/21/22 Pre-op Diagnosis bladder mass Post-op Diagnosis Same Procedure Performed Transurethral section of bladder tumor medium sized 2 cm area Surgeon Rajendra Jones MD Anesthesia General Description of Procedure Patient is taken to the operative suite correctly identified. Once anesthesia was obtained she was placed in dorsal lithotomy position and prepped and draped usual sterile fashion. Twenty-four Ukrainian resectoscope sheath is inserted the bladder. She has an area just proximal to the left UO which a compass approximately 2 cm. We went ahead and resected this area and fulgurated the base. There was good hemostasis. Specimen was sent for analysis. 2% viscous lidocaine was inserted into the urethra patient is taken recovery stable condition. She will call for path results in 1 week. This completes dictation on this patient. Please send a copy to my office Estimated Blood Loss 0 Drains No Packing No Pathology Yes Complications No immediate complications Condition Stable Disposition PACU
[2022-12-21] MEDS: LACTATED RINGERS 1,000 ML 30 ML IV CONT (11:47)
[2022-12-21 11:57] LABS: Glucose Point of Care 189 mg/dl (65-105)
== END 2022-12-21 13:45 | disposition home or self-care (01) ==
PROVIDERS: PCP Emergency Medicine; Visit Provider Urology
PROC: 0TBB8ZZ Excision of Bladder, Via Natural or Artificial Opening Endoscopic (ICD-10-PCS; CPT 52235; principal; 2022-12-21 09:00)
DX: C67.9 Malignant neoplasm of bladder, unspecified (principal)
CPT/HCPCS: 52235; 36415; 82948; 85610; 85730; 87077; 87086; 87186; 88307; 93005; J0690; J1100; J2405; J2704; J3010; J7120

== ENCOUNTER 2025-01-18 12:45 | Outpatient (CLI) | payer MEDICARE, SELFPAY ==
--- NOTE | 2025-01-18 13:00 | ECG_ITS ---
Test Date: 2025-01-18 13:16:38 Measurements Intervals [place] Rate: 61 P: -19 [place]: 174 QRS: -24 QRSD: 91 T: 30 QT: 441 QTc: 447 Interpretive Statements SINUS RHYTHM BORDERLINE LEFT AXIS DEVIATION [QRS AXIS < -20] POOR R-WAVE PROGRESSION NONSPECIFIC T-WAVE ABNORMALITY ABNORMAL ECG No previous ECG available for comparison Electronically Signed On 01-19-2025 08:26:47 CDT by Gutierrez Echeverria M.D.
[2025-01-18 13:45] LABS: Anion Gap 7 mmol/L (4-12); Blood Urea Nitrogen 11 mg/dL (7-17); Calcium 9.2 mg/dL (8.4-10.2); Carbon Dioxide 31 mmol/L (22-30); Chloride 101 mmol/L (98-107); Estimated Glomerular Filt Rate > 60; Glucose 135 mg/dL (65-110); Potassium 4.0 mmol/L (3.4-5.0); Sodium 139 mmol/L (137-145)
== END 2025-01-18 12:46 | disposition home or self-care (01) ==
LOC: ANHSURGERY 12:49
PROVIDERS: Anesthesiology; PCP Family Medicine Sports Medicine; Visit Provider Urology
DX: E11.9 Type 2 diabetes mellitus without complications (principal); E78.5 Hyperlipidemia, unspecified; I10 Essential (primary) hypertension; Z01.818 Encounter for other preprocedural examination
CPT/HCPCS: 36415; 80048; 93005

== ENCOUNTER 2025-01-24 00:30 | Day surgery (SDC) | payer MEDICARE, SELFPAY ==
[2025-01-17 16:04] VITALS: BMI 29.0
--- NOTE | 2025-01-17 16:15 | PC.NURSE ---
[facility] has started construction of its new state of the art ER which will open Spring 2026. With this, we anticipate parking may be a challenge for some our surgical patients and families. Parking spaces are limited but are available for all Surgical, obstetrics, and ER patients sharing this lot. If you arrive and find you are having a hard time finding a parking space, please note that we understand the challenges, please drive around the hospital and park near Hospital Entrance 1. When you enter this entrance, you can ask a volunteer to direct or take you back to the surgical waiting area to check in. We appreciate everyone?s understanding of these expected challenges while we build for your future. Report to the Outpatient Waiting Room, entrance under the green pavilion located off [address], at time __09:00am on date _01/24/25 . Planned Procedure Time: _1100am .? Time changes happen often and if your time is changed the preop area will call you the afternoon before. - You and your visitor will be asked to self-screen and do not enter if you have any COVID symptoms. Please call surgeon if you need to reschedule. - A mask is optional within the hospital at this time. Patients may have clear liquids (water, carbonated beverages, clear teas, apple juice) until 3 hours prior to surgery with a maximum of 20 ounces. - No food from midnight until time of surgery and no smoking, or chewing tobacco (or any form of nicotine). No chewing gum, candy or mints.(0800am) Take only the following medications with a SIP of water on the morning of surgery: _Amlodipine, Fluoxetine, Levothyroxine. Tylenol if needed DO NOT STOP ANY OF YOUR OTHER PRESCRIPTION MEDICATIONS PRIOR TO SURGERY EXCEPT THE FOLLOWING Hold all vitamins and supplements for 3 days per anesthesiologist. Last dose is 01/20/25 Medications to discontinue per physician NO ASPIRIN, NSAIDS for [address] Bernstein Date to take last dose___01/16/25 Please no make-up, nail latvian, hairspray, perfume, deodorant, or body powder the day of surgery.? No jewelry (including any body piercings) or valuables the day of surgery, leave them at home.? Please take a shower or bath the night before, or the morning of, surgery with an antibacterial soap.? Wear comfortable, loose fitting clothing.? - Jewelry must be removed prior to entering the operating room.? Rings and piercings that are not removed may be cut off. - The hospital will not accept responsibility for valuables.? - Please leave all valuables, including medications, at home the day of surgery. If you are going home after surgery, a licensed concrete mixing truck driver must drive you home.? - NO public transportation without another adult if you receive anesthesia. - We recommend that an adult stay with you for 24 hours following discharge. - We also recommend that you do not drive, make important decision, drink alcoholic beverages, or take any drugs that were not prescribed by your health care provider for at least 24 hours after your discharge time. Follow any additional instructions given to you from your surgeon. Telephone instructions given to ___Patient and asked if any additional questions and then verbalized understanding. Patient advised to call surgeon office or pre surgery nurse liaison [phone] if any additional questions.
--- NOTE | 2025-01-21 07:07 | PM.HPGS ---
History of Present Illness History of Present Illness Consent: Risks, benefits, and alternatives have been discussed and questions answered. Patient agrees to proceed with procedure. Chief complaint: bladder cancer Narrative: Maine Watkins is a 84 year old female patient of Dr. Jones. 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 ?raised area with calcification. ?early TCC? ?approximately 6-7 mm area). Review of Systems Review of Systems: All systems reviewed & are unremarkable except as noted in HPI and below PMFSH Past Medical History Medical History (Updated 08/04/23 @ 14:29 by Raj Woodruff MD) Hypothyroidism, unspecified Spinal stenosis of lumbar region Hypertension High cholesterol Diabetes Surgical History Surgical History (Updated 08/04/23 @ 14:08 by Meghna Bueno CMA) History of cholecystectomy History of partial hysterectomy History of spinal surgery Family History Family History Grandparent Family history of thyroid disease Father Family history of Alzheimer's disease Mother Family history of Alzheimer's disease Family history of diabetes mellitus in first degree relative Social History Social History (Updated 08/04/23 @ 14:08 by Meghna Bueno CMA) Smoking packs per day: 0.5 Smoking cigarettes per day: 10.0 Years smoked: 2 Smoking pack-years: 1.00 Smoking status: Former smoker Tobacco type: cigarettes Second hand tobacco smoke exposure: Yes Smoking end date: 05/02/1967 Additional smoking assessment comments: PT UNABLE TO RECALL SMOKING HX Alcohol intake: never Substance use: never Substance use type: does not use Do You Feel Safe in your Home?: Yes Lack of Transportation: No Lack of Food: Never True Current Housing: I Have Housing Concerned About Future Housing: No Difficulty Paying Gas/Electric Bills: No Difficulty Paying for Meds: No Currently Unemployed: No Education: High School Diploma/GED Difficulty w/ Childcare or Family Care: No Living arrangements: with family Occupation/Education: retired Gender identity (if verbalized by the patient): Female Spiritual care concerns: No Meds Home Medications and Allergies Home Medications ?Medication ?Instructions ?Recorded ?Confirmed ?Type amlodipine 5 mg tablet 5 mg PO QAM 11/09/22 01/17/25 History fluoxetine 40 mg capsule 40 mg PO QAM 11/09/22 01/17/25 History furosemide 20 mg tablet 20 mg PO QAM 11/09/22 01/17/25 History levothyroxine 88 mcg tablet 88 mcg PO QAM 11/09/22 01/17/25 History (Synthroid) pramipexole 0.125 mg tablet 0.125 mg PO HS 11/09/22 01/17/25 History cyanocobalamin (vitamin B-12) 1,000 mcg PO DAILY 12/13/22 01/17/25 History 1,000 mcg capsule epinephrine 0.3 mg/0.3 mL 0.3 mg IM ONCE 08/04/23 01/17/25 History injection, auto-injector atorvastatin 10 mg tablet 10 mg PO QPM 01/17/25 01/17/25 History semaglutide 1 mg/dose (4 mg/3 mL) 1 mg subcut WEEKLY 01/17/25 01/17/25 History subcutaneous pen injector (Ozempic) Allergies Allergy/AdvReac Type Severity Reaction Status Date / Time bee venom protein (honey Allergy Severe Anaphylaxis Verified 01/17/25 15:59 bee) (bees) codeine Allergy Unknown Hives Verified 01/17/25 15:59 niacin Allergy Unknown Hives Verified 01/17/25 15:59 Sulfa (Sulfonamide Allergy Unknown Unknown- Verified 01/17/25 15:59 Antibiotics) A CHILD empagliflozin (From AdvReac Diarrhea Verified 01/17/25 15:59 Jardiance) Exam Const: General: no acute distress Resp: Effort & Inspection: normal respiratory effort GI: Inspection: non-distended GI Palp: No abdominal tenderness and No Guarding due to palpation present (GI) Auscultation: normal bowel sounds Assessment and Plan Assessment and plan (1) Mass of urinary bladder: Code(s): N32.89 - Other specified disorders of bladder Status: Acute Assessment and Plan: TURBT followed by gemcitabine installation
[2025-01-24] VITALS (12 sets, daily range): BP systolic 136–178; BP diastolic 64–92; PULSE 55–85; RESP 11–21; TEMP 36.1–36.6; O2SAT 21–100; BMI 29.6
--- OUTSIDE RECORDS SUMMARY | 2025-01-24 00:38 | XMS_ITS | Clinical Summary ---
Author Organization [facility] Address [address] [place] [address] Phone Care Team Providers Care Monitoring Engineer Name Role Phone Tin Horne MD Primary Care Provider [phone] Allergies Active Allergy Reactions Criticality Noted Date Comments Niacin Hives High 08/09/2017 Sulfa (Sulfonamide Antibiotics) Hives High 07/31 Social History Tobacco Use Types Packs/Day Years Used Date Smoking Tobacco: Never Assessed Comments Unknown Sex and Gender Information Value Date Recorded Sex Assigned at Not on file Legal Sex Female 9:34 AM CDT Gender Identity Not on file Sexual Orientation Not on file Last Filed Vital Signs Vital Sign Reading Time Taken Comments Blood Pressure - - Pulse - - Temperature - - Respiratory Rate - - Oxygen Saturation - - Inhaled Oxygen Concentration - - Weight 81.6 kg (180 lb) 08/09/2017 11:00 AM CDT Height 154.9 cm (5' 1) 08/09/2017 11:00 AM CDT Body Mass Index 34.01 08/09/2017 11:00 AM CDT Plan of Treatment Health Maintenance Due Date Last Done Comments DTAP/TDAP/TD VACCINES (1 - Tdap) 1960 PNEUMOCOCCAL VACCINE 50+ YEARS (1 of 1 - PCV) 11/16/18 92 ZOSTER VACCINE (1 of 2) 11/17/1991 OSTEOPOROSIS SCREENING 2006 RSV VACCINE (60+ or ) (1 - 1-dose 75+ series) 2016 INFLUENZA VACCINE (#1) 2024 Care Teams Monitoring Engineer Relationship Specialty Start Date End Date Tin Horne MD [address] [place] [address] PCP - General Family Practice 08/09/17
--- NOTE | 2025-01-24 06:18 | WPDHPUPDATE1 ---
History and Physical Update Update Date/Time: 01/24/25 06:18 History and Physical has been reviewed, including an updated exam of the patient. There are NO changes in the patient's condition. Risks, benefits, and alternatives have been discussed and questions answered. Patient agrees to proceed with procedure.
--- NOTE | 2025-01-24 09:19 | WPDANESEPPF ---
Anes - Initial Pre Proc Eval Procedure: Operation Date: 01/24/25 11:00 Proposed Procedures p Transurethral Resection Bladder Tumor Biopsy with Fulguration and Gemcitabine Instillation - Christofer Bernstein MD Date/Time: 01/24/25 09:19 Surgeon: Christofer Bernstein MD Pre Op Diagnosis: bladder cancer Patient Data Age: 84 Gender: F Height: 1.57 m Weight: 73.5 kg Last Vital Signs Temp 36.1 C L 01/24/25 08:40 Pulse 58 L 01/24/25 08:40 Resp 14 01/24/25 08:40 BP 138/66 01/24/25 08:40 Pulse Ox 98 01/24/25 08:40 O2 Del Method Room Air 01/24/25 08:40 Allergies Allergy/AdvReac Type Severity Reaction Status Date / Time bee venom protein (honey Allergy Severe Anaphylaxis Verified 01/24/25 08:58 bee) (bees) codeine Allergy Unknown Hives Verified 01/24/25 08:58 niacin Allergy Unknown Hives Verified 01/24/25 08:58 Sulfa (Sulfonamide Allergy Unknown Unknown- Verified 01/24/25 08:58 Antibiotics) A CHILD empagliflozin (From AdvReac Diarrhea Verified 01/24/25 08:58 Jardiance) Home Medications ?Medication ?Instructions ?Recorded ?Confirmed ?Type amlodipine 5 mg tablet 5 mg PO QAM 11/09/22 01/17/25 History fluoxetine 40 mg capsule 40 mg PO QAM 11/09/22 01/17/25 History furosemide 20 mg tablet 20 mg PO QAM 11/09/22 01/17/25 History levothyroxine 88 mcg tablet 88 mcg PO QAM 11/09/22 01/24/25 History (Synthroid) pramipexole 0.125 mg tablet 0.125 mg PO HS 11/09/22 01/17/25 History cyanocobalamin (vitamin B-12) 1,000 mcg PO DAILY 12/13/22 01/17/25 History 1,000 mcg capsule epinephrine 0.3 mg/0.3 mL 0.3 mg IM ONCE 08/04/23 01/17/25 History injection, auto-injector atorvastatin 10 mg tablet 10 mg PO QPM 01/17/25 01/17/25 History semaglutide 1 mg/dose (4 mg/3 mL) 1 mg subcut WEEKLY 01/17/25 01/17/25 History subcutaneous pen injector (Ozempic) Patient hx anesthesia problems: none Family hx anesthesia problems: none Results Review: All pre-operative results and documents have been reviewed as part of the pre-operative evaluation. [facility] Past Medical History Medical History Hypothyroidism, unspecified Spinal stenosis of lumbar region Hypertension High cholesterol Diabetes Surgical History Surgical History History of cholecystectomy History of partial hysterectomy History of spinal surgery Family History Family History Grandparent Family history of thyroid disease Father Family history of Alzheimer's disease Mother Family history of Alzheimer's disease Family history of diabetes mellitus in first degree relative Social History Social History Smoking packs per day: 0.5 Smoking cigarettes per day: 10.0 Years smoked: 2 Smoking pack-years: 1.00 Smoking status: Former smoker Tobacco type: cigarettes Second hand tobacco smoke exposure: Yes Smoking end date: 05/02/1967 Additional smoking assessment comments: PT UNABLE TO RECALL SMOKING HX Alcohol intake: never Substance use: never Substance use type: does not use Do You Feel Safe in your Home?: Yes Lack of Transportation: No Lack of Food: Never True Current Housing: I Have Housing Concerned About Future Housing: No Difficulty Paying Gas/Electric Bills: No Difficulty Paying for Meds: No Currently Unemployed: No Education: High School Diploma/GED Difficulty w/ Childcare or Family Care: No Living arrangements: with family Occupation/Education: retired Gender identity (if verbalized by the patient): Female Spiritual care concerns: No Anes - Eval Final PreProcedure Day of Procedure 01/24/25 09:19 Patient weight: obese Heart: regular rate and rhythm Lungs: clear to auscultation Airway: Mallampati scale class II Neurological: alert and oriented Last oral intake: >/= 8 hours ASA classification: III Emergent: no Anesthetic plan: proceed Anesthesia type and monitoring: general LMA and standard monitoring Results Review: All pre-operative results and documents have been reviewed as part of the pre-operative evaluation. Informed Consent: The patient's anesthetic plan and its attendant risks and benefits were discussed with the patient/family/POA. Questions were solicited and answers provided to the satisfaction of the patient/family/POA.
[2025-01-24] MEDS: ceFAZolin 2 GM in SODIUM CHLORIDE 0.9% IV 50 ML 100 ML IVPB (10:38)
--- NOTE | 2025-01-24 10:54 | S_PTH ---
PATIENT: Maine Watkins LOC: [facility] U#:[id number] AGE/SX: 84/F ROOM: RE01/24/[address]: Christofer Bernstein MD : 1940 BED: DIS: 01/24/2025 SPEC #: [id number] RECD: 01/24/25 13:31 STATUS: CLIFF REQ #: [id number] ANNA: 01/24/25 10:[address]: Christofer Bernstein DEPT: [facility] Surgical RECD BY: Es Kenney ENTERED: 01/24/25 13:31 SP TYPE: Surgical OTHR DR: Shyla Castañeda, DO Tissues: A - Bladder Tumor Procedures: Hematoxylin and Eosin Stain Gross and Microscopic Level 4
--- NOTE | 2025-01-24 10:55 | W.PM.PROC2 ---
Procedure Note - Detailed Date of Procedure 01/24/25 Pre-op Diagnosis bladder cancer Post-op Diagnosis Same Procedure Performed TURBT (small, 1 cm) Surgeon Christofer Bernstein MD Anesthesia General Description of Procedure patient brought to the operative suite where she was prepped draped in routine sterile fashion in dorsal lithotomy position after the uneventful induction of a general LMA anesthetic. Twenty-four F resectoscope was placed in her bladder. Her belly was very carefully inspected circumferentially. She has 1 very subtle area of hyperemia in the left posterior lateral bladder wall just above the left ureteral orifice. Remainder of the bladder mucosa is perfectly normal. I resected this site with extreme care to avoid any injury to the ureter. I attempted to include detrusor muscle for pathological evaluation of invasion. Resectoscope was removed and a 16 F Luong catheter was placed to drainage. Drains Yes Pathology Yes Complications No immediate complications
--- NOTE | 2025-01-24 10:57 | W.PM.PROC2 ---
Procedure Note - Detailed Date of Procedure 01/24/25 Pre-op Diagnosis Blladder cancer Post-op Diagnosis Same Procedure Performed Gemcitabine installation Surgeon Christofer Bernstein MD Anesthesia None Description of Procedure With the patient in the supine position, a 16F Luong catheter is placed using sterile technique. Using a protective facemask, gown and double layer of gloves Gemcitabine 2gm in 100cc saline is administered through the catheter/into the bladder. The catheter is then plugged. Patient was instructed to lie supine x20min, then to roll both the left and right x20 min. each. Total dwell time will be 60 min., after which the bladder will be drained and catheter removed.
[2025-01-24] MEDS: LACTATED RINGERS 1,000 ML 30 ML IV CONT ×2 (11:00→12:04)
[2025-01-24] MEDS: SODIUM CHLORIDE 0.9% IV 23.7 ML, GEMCITABINE HCL 1,000 MG BLADDER ×2 (11:26→11:27)
--- NOTE | 2025-01-24 11:41 | SUR.PHASEI ---
DR. POST ADMINISTERED GEMCITABINE MEDICATION VIA TORRES CATHETER; CAPPED X 20 WHILE PATIENT IS ON HER BACK FOR 20 MINUTES. PATIENT STILL SEDATED WITH ORAL AIRWAY IN PLACE.
--- NOTE | 2025-01-24 11:47 | SUR.PHASEI ---
PATIENT AWAKE AND ALERT; ORAL AIRWAY REMOVED; TURNED TO RIGHT SIDE FOR 20 MINUTES.
--- NOTE | 2025-01-24 12:05 | SUR.PHASEI ---
PATIENT TOLERATING PROCEDURE WITHOUT COMPLAINT.
--- NOTE | 2025-01-24 12:09 | SUR.PHASEI ---
PATIENT NOW ON LEFT SIDE X 20 MINUTES.
--- NOTE | 2025-01-24 12:33 | SUR.PHASEI ---
PATIENT LAYING ON BACK; TORRES DRAINING CHEMO.
--- NOTE | 2025-01-24 12:55 | SUR.PHASEI ---
TORRES CATHETER IRRIGATED WITH 150 ML NS; THEN REMOVED. PATIENT TOLERATE PROCEDURE WITHOUT COMPLAINT.
== END 2025-01-24 14:03 | disposition home or self-care (01) ==
PROVIDERS: PCP Family Medicine Sports Medicine; Visit Provider Urology
PROC: 0TBB8ZZ Excision of Bladder, Via Natural or Artificial Opening Endoscopic (ICD-10-PCS; CPT 52234; principal; 2025-01-24 11:00)
DX: N32.89 Other specified disorders of bladder (principal); N30.20 Other chronic cystitis without hematuria; E03.9 Hypothyroidism, unspecified; I10 Essential (primary) hypertension; E78.00 Pure hypercholesterolemia, unspecified; E11.9 Type 2 diabetes mellitus without complications; M48.061 Spinal stenosis, lumbar region without neurogenic claudication; E66.9 Obesity, unspecified; Z68.29 Body mass index [BMI] 29.0-29.9, adult; Z79.85 Long-term (current) use of injectable non-insulin antidiabetic drugs; Z98.890 Other specified postprocedural states; Z90.49 Acquired absence of other specified parts of digestive tract; Z98.1 Arthrodesis status; Z87.891 Personal history of nicotine dependence
CPT/HCPCS: 52234; 51720; 82948; 88305; J0690; J2003; J2250; J2405; J2704; J3010; J7120; J9201